=== PATIENT | female | born 1960 | race Caucasian/White ===

== ENCOUNTER 2016-10-15 06:48 | Inpatient (IN) | payer OTHER ==
--- NOTE | 2016-10-06 08:01 | HP ---
PREOPERATIVE HISTORY AND PHYSICAL EXAM: DATE OF ADMISSION: 10/15/16 CHIEF COMPLAINT: Left knee pain. HISTORY OF PRESENT ILLNESS: Ms. Pablo is a 56-year-old female with known left knee ligamentous instability and advanced arthritis. This is a valgus knee with MCL incompetence and some lateral laxity. Radiographs showed bone-on- bone contact. She has failed conservative treatment and is here today for preoperative H and P for upcoming 10/15/16 left total knee arthroplasty. PAST MEDICAL HISTORY: Depression, anxiety, arthralgias, hyperlipidemia, GERD, insomnia, postmenopausal disorder, morbid obesity, Achilles bursitis, prior lumbar spine fracture, irritable bowel syndrome. PAST SURGICAL HISTORY: Carpal tunnel release, left knee arthroscopy. CURRENT MEDICATIONS: 1. Ambien 5 to 10 mg p.o. q.h.s. for insomnia. 2. Calcium and vitamin D 500/200 one tablet p.o. b.i.d. 3. Atorvastatin 20 mg p.o. q.h.s. 4. Multivitamin 1 tablet p.o. daily. 5. Nexium 80 mg p.o. b.i.d. 6. Triamcinolone acetonide 0.1% ear drops 2 times per day as directed. 7. Tizanidine 2 to 4 mg p.o. b.i.d. 8. Extended-release morphine 15 mg p.o. b.i.d. 9. Alprazolam 0.5 mg p.o. t.i.d. ALLERGIES: No known drug allergies. No known latex allergy. FAMILY HISTORY: Heart disease. SOCIAL HISTORY: The patient lives with her children. She is disabled and does not work. No tobacco, alcohol, or recreational drug use. Ambulates with a cane or rolling walker at all times. REVIEW OF SYSTEMS: Fourteen systems are reviewed with the patient. Positive for bilateral knee pain, depression, anxiety, chronic back pain, heartburn, diarrhea, constipation. Otherwise, the patient reports review of systems is negative or not relevant. PHYSICAL EXAMINATION GENERAL: The patient is a morbidly obese female in no apparent distress. Alert and oriented x3. Pleasant mood and appropriate affect. HEENT: Atraumatic, normocephalic. Pupils equal and reactive to light. NECK: Trachea midline. No palpable lymph nodes. HEART: S1, S2. Clear to auscultation in all lung lofton. No wheezes, rubs, or rhonchi. ABDOMEN: Soft, round, nontender, nondistended. Bowel sounds in 4 quadrants. EXTREMITIES: Left lower extremity: The patient's skin is intact, 12 to 15 degrees valgus deformity that corrects by 5 degrees. There is MCL laxity and no clear endpoint LCL laxity, but I do feel an endpoint 10 to 120 degrees of active motion at the knee. Moderate effusion. No palpable mass or lymph nodes. Distally, 5/5 ankle dorsiflexion, plantar flexion strength. Full sensation to light touch in all nerve distributions and 2+ palpable DP pulse. GAIT: The patient's gait is antalgic. Slight lateral thrust to the left knee, ambulating with a cane. DIAGNOSTIC STUDIES: Radiographs: Plain film views are reviewed and show end- stage valgus arthritis of the knee with [id number] contact in the lateral compartment. An MRI from 07/11/15 shows high-grade or complete tear of the MCL and a high- grade partial tear of the LCL. ASSESSMENT AND PLAN: Ms. Pablo is a 56-year-old morbidly obese female with severe end-stage arthritis of the left knee joint. This is a valgus deformity. She also has MCL incompetence and LCL laxity. Today, the patient and I spent a long time discussing different levels of constraint in total knee arthroplasty. I do not believe she is a candidate for primary total knee arthroplasty and certainly needs at least a constrained implant. The next option would be a long-stemmed knee such as a TC3. I will have all these options from [employer] on the date of surgery on 10/15/16. If we are able to obtain stability with constrained primary implant, that would be my first choice and she understands this. I feel her ligament laxity and morbid obesity as well as her young age make early loosening of the implant possible. She reports she will accept this and proceed with surgery. Informed consent was obtained from the patient. She understands the risks of surgery include but are not limited to bleeding, infection, damage to nearby structures, continued pain, need for further surgery, intraoperative fracture, hardware failure or loosening, stroke, heart attack, blood clot, and . She wishes to proceed. She is tentatively scheduled for 10/15/16 left total knee arthroplasty. We will decide on postoperative pain control based on her postoperative needs. She will have Coumadin for a month after surgery for DVT prophylaxis. She will be n.p.o. after midnight the night before surgery, and she is headed over for preoperative testing at the hospital now. [id number]/[facility] #: [id number] MANISH
[~2016-10-15 06:48] MED LIST: Buffered Lidocaine 1% SYR 3ML* 3 ML/SYR SYRINGE INTRADERM ONE; Dexamethasone IV* 4 MG/ML 1 ML (4 MG) IV SLOW PU ONE; Famotidine IV* 10 MG/ML 2 ML (20 mg) IV ONE
[2016-10-15] MEDS ORDERED: Famotidine IV* 10 MG/ML 2 ML (20 mg) ONE (06:54)
[2016-10-15] MEDS ORDERED: Dexamethasone IV* 4 MG/ML 1 ML (4 MG) ONE (06:54)
[2016-10-15] MEDS ORDERED: ceFAZolin 2 GM PREMIX (*) 2 GM/50 ML BAG IVPB ONE (06:54)
[2016-10-15] MEDS ORDERED: fentaNYL* 50 MCG/ML 2 ML VIAL (100 MCG VIAL) ONE (07:12)
[2016-10-15] MEDS ORDERED: Dexmedetomidine* 200 MCG/2 ML 2 ML VIAL ONE (07:12)
[2016-10-15] MEDS ORDERED: HYDROmorphone INJ* 1 MG/ML CARPUJECT SYRINGE ONE ×2 (07:12→08:26)
[2016-10-15] MEDS ORDERED: Morphine PF AMP (0.5MG/ML)* 5 MG/10 ML AMP ONE (07:12)
[2016-10-15] MEDS ORDERED: Bupivacaine 0.5% SDV PF* 30 ML VIAL ONE ×2 (07:12→10:48)
[2016-10-15] MEDS ORDERED: Midazolam* 1 MG/ML 5 ML VIAL (5 MG) ONE (07:12)
[2016-10-15] MEDS ORDERED: Scopolamine 1.5 mg* PATCH ONE (07:40)
[2016-10-15] MEDS ORDERED: Ondansetron INJ* 2 MG/ML VIAL IV PRN ×3 (07:42→11:40)
[2016-10-15] MEDS ORDERED: DiMENhydriNATE IV* 50 MG/ML VIAL IV PUSH PRN (07:42)
[2016-10-15] MEDS ORDERED: PROCHLORPERAZINE INJ 5 MG/ML 2 ML VIAL IV PRN ×2 (07:42→11:40)
[2016-10-15] MEDS ORDERED: Scopolamine 1.5 mg* PATCH TRANSDERM PRN (07:42)
[2016-10-15] MEDS ORDERED: fentaNYL* 50 MCG/ML 2 ML VIAL (100 MCG VIAL) IV PRN (07:42)
[2016-10-15] MEDS ORDERED: diPHENhydraMINE IV* 50 MG/ML 1 ml VIAL (BENADRYL) IV PRN ×2 (10:28→11:40)
[2016-10-15] MEDS ORDERED: Ondansetron TAB* 4 MG PO PRN (10:28)
[2016-10-15] MEDS ORDERED: Bisacodyl SUPP* 10 MG SUPP PR PRN (10:28)
[2016-10-15] MEDS ORDERED: Polyethylene Glycol 3350* 17 GM PACKET PO PRN (10:28)
[2016-10-15] MEDS ORDERED: Propofol* 10 MG/ML 20 ML BTL IV PUSH ONE (10:48)
[2016-10-15] MEDS ORDERED: Enoxaparin(*) 30 MG/0.3 ML SYR SUBCUT SCH (11:00)
[2016-10-15] MEDS ORDERED: Nalbuphine* 20 MG/ML 1 ML VIAL IV PRN (11:40)
[2016-10-15] MEDS ORDERED: Naloxone* 0.4 MG/ML 1 ML VIAL IV PRN (11:40)
[2016-10-15] MEDS ORDERED: Morphine ORAL.SOLN 10 mg* 2 MG/ML UDC 5 ml PO PRN (11:41)
--- NOTE | 2016-10-15 13:10 | RAD ---
HISTORY: Status post left knee arthroplasty COMPARISONS: July 03, 2016 VIEWS: 4, frontal and crosstable lateral views of the left femur and foreleg FINDINGS: BONE DENSITY: Normal. BONES: The patient is status post left knee arthroplasty. There is no appreciable hardware failure or osteolysis JOINTS: The patient is status post left knee arthroplasty. ALIGNMENT: There is no dislocation. SOFT TISSUES: Unremarkable. OTHER FINDINGS: None. IMPRESSION: STATUS POST LEFT KNEE ARTHROPLASTY
--- NOTE | 2016-10-15 13:15 | RAD ---
INDICATION: Left knee replacement COMPARISONS: July 03, 2016 TECHNIQUE: Fluoroscopy was provided for a surgical procedure. Total fluoroscopy time is: 4.6 seconds FINDINGS: Spot images demonstrate left knee arthroplasty IMPRESSION: FLUOROSCOPY WAS PROVIDED FOR A SURGICAL PROCEDURE CPT II Codes: 6045F
--- NOTE | 2016-10-15 14:32 | RAD ---
Indication: Bipolar knee arthroplasty. 2 views of left knee demonstrates bipolar knee arthroplasty in satisfactory position with long femoral and tibial components. IMPRESSION: LEFT KNEE ARTHROPLASTY IN SATISFACTORY POSITION.
[2016-10-15] MEDS ORDERED: Morphine INJ* 4 MG/ML 1 ML CARPUJECT ONE (16:39)
[2016-10-15] MEDS: ceFAZolin 1 GM in Dextrose (*) 1 GM/50 ML BAG IVPB SCH (16:52)
[2016-10-15] MEDS ORDERED: Warfarin TAB(*) 6 MG PO ONE (17:00)
[2016-10-15] MEDS ORDERED: Ibuprofen TAB* 400 MG ONE (18:14)
[2016-10-15] MEDS: Morphine INJ* 4 MG/ML 1 ML CARPUJECT IV PRN ×3 (18:38→22:43)
[2016-10-15] MEDS: Docusate CAP* 100 MG PO SCH (20:41)
[2016-10-15] MEDS: Magnesium Hydroxide LIQ* 30 ML UDC PO SCH (22:46)
[2016-10-16] MEDS: Morphine TAB Extended Release (*) 30 MG TAB.ER PO SCH ×2 (00:02→12:22)
[2016-10-16] MEDS: ESOMEPRAZOLE 40 MG PO SCH ×3 (00:03→20:47)
[2016-10-16] MEDS: ALPRAZolam TAB* 0.5 MG PO PRN ×2 (00:03→14:08)
[2016-10-16] MEDS: ceFAZolin 1 GM in Dextrose (*) 1 GM/50 ML BAG IVPB SCH ×2 (00:05→08:41)
[2016-10-16] MEDS ORDERED: Zolpidem TAB* 5 MG PO PRN (00:41)
[2016-10-16] MEDS: Morphine INJ* 10 MG/ML 1 ML CARPUJECT IV PRN ×8 (00:43→16:59)
--- NOTE | 2016-10-16 01:21 | OP ---
DATE OF OPERATION: 10/15/16 - ROOM #[id number] DATE OF : 56 SURGEON: Keri Hutchinson MD CASTING REPAIRER: CHANTAL Stout ANESTHESIOLOGIST: Dr. Swartz. ANESTHESIA: Spinal. PRE-OP DIAGNOSES: Severe end-stage degenerative osteoarthritis of the left knee joint with valgus deformity, full tear of the medial collateral ligament, high-grade tear of the lateral collateral ligament. POST-OP DIAGNOSES: Severe end-stage degenerative osteoarthritis of the left knee joint with valgus deformity, full tear of the medial collateral ligament, high-grade tear of the lateral collateral ligament. OPERATIVE PROCEDURE: Left total knee arthroplasty. INDICATIONS: Ms. Pablo is a 56-year-old female with over 5 years of severe left knee pain and increasing valgus deformity. She was found to have a full MCL tear and high-grade tear of the LCL. Radiographs confirmed end-stage arthritis. The patient had difficulty ambulating and severe instability in the knee. She failed conservative treatment and elected to undergo left total knee arthroplasty. She understood the level of constraint needed and this primary knee would be higher than the normal primary total knee due to her ligamentous instability. Informed consent was obtained from the patient. She understood the risks of the procedure included but were not limited to bleeding, infection , damage to nearby structures, continued pain, need for further surgery, intraoperative fracture, stroke, heart attack, , nerve palsy, early hardware failure or loosening, periprosthetic fracture. The patient wished to proceed. COMPLICATIONS: None. ESTIMATED BLOOD LOSS: 300 cc. TOURNIQUET TIME: 71 minutes. SPECIMEN: Bone and cartilage from the left knee joint sent to Pathology. HARDWARE USED: This is [employer] cemented total knee hardware. For the femur, a sigma size 4 narrow left femoral component posterior stabilized cemented. An uncemented 75 x 16 mm stem was used for the femur. For the tibia, a MBT revision tibial tray rotating platform size 3 cemented. A 10-mm tibial insert rotating platform posterior stabilized was used, size 4. For the patella, a 3- peg All Poly oval dome patella size 32. Two packages of simplex bone cement. INTRAOPERATIVE FINDINGS: Intraoperatively, the patient had full-thickness cartilage loss in the lateral and patellofemoral compartments. She had preop 15 degrees of valgus deformity, which was corrected to 5-degree anatomic valgus alignment throughout the procedure. She had incompetent MCL. LCL had some laxity, but was competent. DESCRIPTION OF PROCEDURE: Ms. Pablo was identified in the preanesthesia unit. Her left lower extremity was marked as the correct operative side. Informed consent was signed and placed in the chart. The patient was taken to the operating room and placed under spinal anesthesia without difficulty. Omalley catheter was placed. Tourniquet was placed on the left thigh. Left lower extremity was prepped and draped in the usual sterile fashion. Preop time-out was made to correctly identify the patient's side and site. Appropriate perioperative antibiotics were given within 1 hour of incision. A 12-cm midline incision was made with a 10 blade. This was carried down to the extensor mechanism. A new 10 blade was used to make a standard medial parapatellar arthrotomy. Patella was subluxed laterally. Electrocautery was used to subperiosteally elevate soft tissue off the superomedial tibia to the mid sagittal plane. MCL was noted to incompetent. There was a small amount of posterior deep MCL still intact. The knee was flexed up. A drill was used to enter the distal femur. Intramedullary distal femoral cutting guide was placed and 9 mm of distal femur was carefully removed with an oscillating saw. Lateral femoral condylar hypoplasia was noted and accounted for. External rotation was pinned on to distal femur. Distal femur was sized to a size 4. A size 4 multi-cutting block was pinned on to distal femur. The appropriate chamfer cuts were made. PCL was completely released and the tibia was subluxed anteriorly. Extramedullary tibial cutting guide was pinned on to proximal tibia. Oscillating saw was used to make the appropriate proximal tibial cut. The bone was carefully removed. The knee was brought out in to full extension. There was some ligamentous tightness laterally. Electrocautery was used to release the capsule along the posterolateral bone and any osteophytes were carefully removed. The LCL was competent and small amount of pie-crusting was done with a 15 blade. Medial and lateral balancing was much improved. Flexion and extension gaps were well balanced. The knee was flexed up. The tibial tray and drop prieto showed satisfactory tibial cut perpendicular to the mechanical axis of the tibia. Lamina pediatric urologist was placed both medially and laterally. Any remaining meniscus was carefully removed with electrocautery. Any posterior osteophytes were removed using a curved osteotome. A size 4 narrow femoral trial was chosen and decision was made to place a stem due to the ligamentous incompetence. The intramedullary canal was sequentially broached and a size 16 stem was chosen. The trial was placed and the box for the posterior stabilized implant was made using a reciprocating saw. The implant had excellent fit and stability. A tibial tray trial with 10-mm insert was chosen. The knee was taken through range of motion and noted to have full extension to 125 degrees of flexion. The patella was everted. 9 mm of patellar bone and cartilages were removed using an oscillating saw. The patella was sized to a size 32. Three pegs were drilled to the size 32 guide. Trial patella was placed and the knee was taken through range of motion. The knee was stable in all positions. All trials were carefully removed. The tibia was subluxed anteriorly and sized to a size 3. Proximal tibia was prepared using a reamer. All bony cut surfaces were copiously irrigated with sterile saline and dried. Final implants were cemented into place starting with the tibia, followed by the femur, and lastly the patella. A 10-mm insert trial was chosen and the knee was brought out into full extension. The cement was allowed to fully cure and tourniquet was turned down at 71 minutes. Once the cement fully cured, the insert trial was removed. Posterior capsule was checked for any excess cement. Electrocautery was used to obtain meticulous hemostasis. Final insert chosen was a 10-mm tibial tray rotating platform, stabilized insert. This was locked into position on the tibial tray without difficulty. The knee was taken through range of motion and had full extension to 125 degrees of flexion. Good patellofemoral tracking. The knee was copiously irrigated with sterile saline. Extensor mechanism was closed over medium Hemovac drain using #1 Vicryl's, which were interrupted. Extra attention was given to repairing the distal medial soft tissue and a stable repair was obtained. The rest of the incision was closed in a layered fashion using 0 and 2-0 Vicryl's. Skin was closed using running 3-0 nylon suture. Sterile Xeroform, 4x4's, and Webril were used to cover the incision. The patient's incision was covered with 4x4's, Webril, Faisal wrap, and cold pack. Her anesthesia was reversed without difficulty. She was taken to the PACU in stable condition. Intended weightbearing will be weightbearing as tolerated. Intended DVT prophylaxis will be Coumadin with Lovenox bridge. [id number]/[facility] #: [id number] MTDD
[2016-10-16 06:54] LABS: Hematocrit 28 % (35-47); Hemoglobin 9.2 g/dl (12.0-16.0)
[2016-10-16 07:09] LABS: BUN/Creatinine Ratio 10.6 (8-20); Calcium 8.6 mg/dL (8.6-10.3); EGFR African American 88.3 (>60); EGFR Non-African American 68.7 (>60); Potassium 3.8 mmol/L (3.5-5.0)
[2016-10-16] MEDS: diPHENhydraMINE PO* 25 MG PO PRN ×2 (08:42→14:09)
[2016-10-16] MEDS: HYDROmorphone TAB* 4 MG PO PRN ×2 (08:43→14:08)
[2016-10-16] MEDS: Docusate CAP* 100 MG PO SCH ×2 (08:43→20:47)
[2016-10-16] MEDS: Ibuprofen TAB* 400 MG PO PRN ×3 (08:44→20:47)
[2016-10-16] MEDS ORDERED: tiZANidine TAB* 2 MG PO PRN (08:44)
[2016-10-16] MEDS: Magnesium Hydroxide LIQ* 30 ML UDC PO SCH ×2 (08:48→20:47)
[2016-10-16] MEDS ORDERED: ABILIFY PO SCH (09:00)
[2016-10-16] MEDS ORDERED: Atorvastatin* 20 MG TAB PO SCH (09:00)
[2016-10-16] MEDS ORDERED: Morphine TAB Extended Release (*) 15 MG TAB.ER PO SCH (09:00)
--- NOTE | 2016-10-16 09:02 | PN ---
Progress Note - Progress Note SOAP: Subjective: Pt. reports pain is well controlled. Objective: LLE - drain removed, tip intact, 400 cc ss drainage. distally nvi with +df/pf, full sens lt, 2+ dp pulse. Vital Signs: Temp Pulse Resp BP Pulse Ox 100.8 F 64 22 116/76 97 10/16/16 07:13 10/16/16 07:13 10/16/16 08:54 10/16/16 07:13 10/16/16 04:46 Laboratory Results - last 24 hr 10/16/16 10/16/16 10/16/16 06:19 06:19 06:19 Hgb 9.2 L Hct 28 L INR (Anticoag Therapy) 1.05 Sodium 138 Potassium 3.8 Chloride 105 Carbon Dioxide 30 Anion Gap 3 BUN 9 Creatinine 0.85 Est GFR ( Amer) 88.3 Est GFR (Non-Af Amer) 68.7 BUN/Creatinine Ratio 10.6 Glucose 109 H Calcium 8.6 Assessment: 56 yo F pod 1 s/p LTKA Plan: heel bootie to LLE wbat lle pt/ot 8 mg coumadin tonight, lovenox bridge possible d/c to home tomorrow am
[2016-10-16] MEDS: Enoxaparin(*) 30 MG/0.3 ML SYR SUBCUT SCH (11:08)
[2016-10-16] MEDS ORDERED: Warfarin TAB(*) 4 MG PO ONE (17:00)
[2016-10-16] MEDS ORDERED: Warfarin TAB(*) 6 MG PO SCH (17:00)
[2016-10-16] MEDS: Atorvastatin* 20 MG TAB PO SCH (20:46)
[2016-10-16] MEDS: Zolpidem TAB* 5 MG PO PRN (21:49)
[2016-10-16] MEDS ORDERED: ALPRAZolam TAB* 0.5 MG PO ONE (22:00)
[2016-10-17] MEDS: Morphine TAB Extended Release (*) 30 MG TAB.ER PO SCH ×3 (00:05→23:53)
[2016-10-17] MEDS: HYDROmorphone TAB* 4 MG PO PRN ×4 (03:52→23:52)
[2016-10-17] MEDS: Ibuprofen TAB* 400 MG PO PRN (03:55)
[2016-10-17 06:59] LABS: Hematocrit 27 % (35-47); Hemoglobin 8.8 g/dl (12.0-16.0)
[2016-10-17] MEDS: Morphine INJ* 10 MG/ML 1 ML CARPUJECT IV PRN (08:05)
--- NOTE | 2016-10-17 08:46 | PN ---
Progress Note - Progress Note SOAP: Subjective: POD #2 Left TKA. States she is still having quite a bit of pain, needing IV pain meds. Denies CP/SOB, calf pain. Objective: Vitals: Temp Pulse Resp BP Pulse Ox 98.1 F 74 16 103/56 100 10/17/16 03:44 10/17/16 03:44 10/17/16 08:05 10/17/16 03:44 10/17/16 03:44 Gen: A&Ox3, NAD at rest sitting in bed LLE: Incision C/D/I, moderate edema, no erythema. + ecchymosis around drain site. Thigh and calf soft, min ttp. +f/e at ankle, MTPs. N/V intact Labs: Laboratory Results - last 24 hr 10/17/16 10/17/16 06:20 06:20 Hgb 8.8 L Hct 27 L INR (Anticoag Therapy) 1.60 H Assessment: POD #2 Left TKA Plan: Encouraged pt to use oral pain meds only, IV meds only when in severe pain INR 1.6 after 8mg Coumadin. Will give 6mg tonight Cont PT/OT Possible d/c tomorrow
[2016-10-17] MEDS: Docusate CAP* 100 MG PO SCH ×2 (08:54→20:06)
[2016-10-17] MEDS: ESOMEPRAZOLE 40 MG PO SCH ×2 (08:54→20:06)
[2016-10-17] MEDS: diPHENhydraMINE PO* 25 MG PO PRN ×2 (08:54→23:53)
[2016-10-17] MEDS: Magnesium Hydroxide LIQ* 30 ML UDC PO SCH ×2 (08:55→20:08)
[2016-10-17] MEDS ORDERED: Pneumococcal *Vac Polyvalent 0.5 ML VIAL IM ONE (09:00)
[2016-10-17] MEDS: ALPRAZolam TAB* 0.5 MG PO PRN (10:29)
[2016-10-17] MEDS: Acetaminophen TAB* 325 MG PO PRN ×2 (10:29→20:06)
[2016-10-17] MEDS: Enoxaparin(*) 30 MG/0.3 ML SYR SUBCUT SCH (10:30)
[2016-10-17] MEDS ORDERED: Warfarin TAB(*) 6 MG PO SCH (17:00)
[2016-10-17] MEDS: Atorvastatin* 20 MG TAB PO SCH (20:06)
[2016-10-17] MEDS: Zolpidem TAB* 5 MG PO PRN (23:52)
[2016-10-18] MEDS: Acetaminophen TAB* 325 MG PO PRN (06:19)
[2016-10-18] MEDS: HYDROmorphone TAB* 4 MG PO PRN ×2 (06:20→12:34)
[2016-10-18] MEDS ORDERED: Scopolamine PATCH Remove* 1 NOTE MISC PATCH OFF ONE (07:43)
[2016-10-18 08:03] LABS: Hematocrit 25 % (35-47); Hemoglobin 8.2 g/dl (12.0-16.0)
--- NOTE | 2016-10-18 08:34 | PN ---
Progress Note - Progress Note SOAP: Subjective: POD #3 left TKA, doing well. Has not required IV pain medication since yesterday morning. Ambulating with minimal assistance and walker. Denies dizziness, CP/SOB or calf pain. Objective: Vitals: Temp Pulse Resp BP Pulse Ox 98.5 F 87 16 122/46 93 10/18/ 07:11 10/18/16 07:11 10/18/16 07:49 10/18/16 07:11 10/18/16 07:11 Gen: A&Ox3, NAD ambulating to bathroom with walker. LLE: Dressing C/D/I, +f/e at ankle and MTPs, N/V intact Labs: Laboratory Results - last 24 hr 10/18/17 10/18/16 07:43 07:43 Hgb 8.2 L Hct 25 L INR (Anticoag Therapy) 2.92 H Assessment: POD #3 left TKA Plan: D/C home today with current pain medications VNS and home PT to see Hold Coumadin 10/18/16, 10/19/16 as INR 2.92
[2016-10-18] MEDS: Docusate CAP* 100 MG PO SCH (09:37)
[2016-10-18] MEDS: ESOMEPRAZOLE 40 MG PO SCH (09:37)
[2016-10-18] MEDS: diPHENhydraMINE PO* 25 MG PO PRN (09:39)
[2016-10-18] MEDS: Magnesium Hydroxide LIQ* 30 ML UDC PO SCH (09:40)
--- NOTE | 2016-10-18 11:40 | DS ---
DISCHARGE SUMMARY: DATE OF ADMISSION: 10/15/16 DATE OF DISCHARGE: 10/18/16 PROVIDER: Keri Hutchinson MD ADMISSION DIAGNOSIS: Severe end-stage osteoarthritis of the left knee. DISCHARGE DIAGNOSIS: Severe end-stage osteoarthritis of the left knee, status post left total knee arthroplasty. SECONDARY DIAGNOSES: 1. Depression. 2. Anxiety. 3. Hyperlipidemia. 4. Gastroesophageal reflux disease. 5. Insomnia and irritable bowel syndrome. HISTORY OF PRESENT ILLNESS: Ms. Pablo is a 56-year-old female who had advanced end-stage osteoarthritis of the left knee. She had failed conservative treatment and elected to proceed with a left total knee arthroplasty. HOSPITAL COURSE: On 10/15/16, the patient was admitted to [facility] and underwent a successful left total knee arthroplasty by Dr. Hutchinson. She recovered briefly in the post-anesthesia care unit. She was then transferred to the Short-Stay Surgical Unit in stable condition. She was receiving IV and oral pain medication. On postop day #1, the patient was able to ambulate a short distance with the use of a rolling walker. She continued to need IV and oral pain medication. She had acute blood loss anemia with an H and H of 9.2 and 28. INR was 1.05 with 8 mg of Coumadin the night previously. Her Omalley catheter was removed that day. Her Hemovac was also removed without complication. On postop day #2, the patient still continued to require some IV and oral pain medication; however, she was able to ambulate a longer distance with physical therapy and the use of a rolling walker. She continued to have acute blood loss anemia. H and H is 8.8 and 27. INR 1.6 with an additional 8 mg of Coumadin. On postop day #3, the patient not required IV pain medication for greater than 24 hours. She was ambulating with minimal assistance with the rolling walker without significant pain. H and H was 8.2 and 25. INR 2.9 with a 6 mg of Coumadin the night previously. Throughout the patient's hospital course, she remained normotensive and afebrile. She denies any dizziness, lightheadedness, shortness of breath, or chest pain. She was found stable for discharge on postop day #3. DISCHARGE MEDICATIONS: The patient will go home with a prescription for: 1. Hydromorphone 4 mg p.o. q.6 hours p.r.n. pain. 2. She has a prescription also for Percocet 5/325 mg p.o. q.4-6 hours p.r.n. pain. 3. She is understanding to take either the Percocet or the hydromorphone; however, she is not to take both at the same time. 4. Colace 100 mg p.o. b.i.d. p.r.n. and constipation. 5. Coumadin 2 mg by mouth daily or as directed by the visiting nurse. She is advised to hold her Coumadin on 10/18/16 and 10/19/16 as her INR was supratherapeutic. The patient will resume her home medications of: 1. Morphine sulfate ER 15 mg p.o. b.i.d. 2. Nexium 4 mg p.o. every day. 3. Diclofenac gel 1% apply topically t.i.d. p.r.n. pain. 4. Calcium carbonate/cholecalciferol 1 tab p.o. daily. 5. Lipitor 20 mg p.o. daily. 6. Abilify 1 tab p.o. daily. 7. Alprazolam 0.5 mg p.o. t.i.d. p.r.n. anxiety. 8. Ambien 10 mg p.o. at bedtime. 9. Tizanidine 2 to 4 mg p.o. b.i.d. 10. Multivitamin 1 p.o. every day. 11. Celebrex 200 mg 1 tab p.o. every day. DISCHARGE INSTRUCTIONS: The patient is to keep her incision clean and dry until postop day #4. She may shower normally at that time and wash normally. She may apply dry dressing as needed. She is understanding not to submerge the incision in the bathtub, hot tub, or swimming pool. She will be weightbearing as tolerated with the use of a rolling walker. She will have visiting nurse service and home physical therapy for INR draws and home exercise plan. The patient understanding to call Dr. Hutchinson's office with any questions or concerns. She is to go directly to the emergency room with any chest pain, shortness of breath, fever greater than 101.5, or calf pain or swelling. The patient will otherwise follow up with Dr. Hutchinson in 10 to 14 days postoperatively. All the patient's questions were answered to her full satisfaction. CHANTAL MORALES [id number]/[facility] #: [id number] MTDD
[2016-10-18 12:08] VITALS: BP 113/53
[2016-10-18] MEDS: Morphine TAB Extended Release (*) 30 MG TAB.ER PO SCH (12:34)
[2016-10-18] MEDS: Enoxaparin(*) 30 MG/0.3 ML SYR SUBCUT SCH (12:51)
== END 2016-10-18 14:30 | disposition home or self-care (01) | DRG 302 ==
LOC: AA 06:48 → SSU 13:22
PROVIDERS: ADMIT Orthopaedic Surgery Adult Reconstructive Orthopaedic Surgery; ATTEND Orthopaedic Surgery Adult Reconstructive Orthopaedic Surgery
PROC: 0SRD0J9 Replacement of Left Knee Joint with Synthetic Substitute, Cemented, Open Approach (ICD-10-PCS; principal; 2016-10-15 08:30)
DX: M17.12 Unilateral primary osteoarthritis, left knee (principal); F32.9 Major depressive disorder, single episode, unspecified; S83.412A Sprain of medial collateral ligament of left knee, initial encounter; S83.422A Sprain of lateral collateral ligament of left knee, initial encounter; E78.5 Hyperlipidemia, unspecified; F41.9 Anxiety disorder, unspecified; K21.9 Gastro-esophageal reflux disease without esophagitis; G47.00 Insomnia, unspecified; N95.9 Unspecified menopausal and perimenopausal disorder; K58.9 Irritable bowel syndrome, unspecified; M76.60 Achilles tendinitis, unspecified leg; E66.9 Obesity, unspecified; X58.XXXA Exposure to other specified factors, initial encounter; Y92.9 Unspecified place or not applicable; Z68.35 Body mass index [BMI] 35.0-35.9, adult; Z79.891 Long term (current) use of opiate analgesic; Z79.899 Other long term (current) drug therapy; Z82.49 Family history of ischemic heart disease and other diseases of the circulatory system
CPT/HCPCS: 36415; 76000; 80048; 85014; 85018; 85610; 88305; 88311; 90732; 94760; A9270-GY; C1776; J0690; J1100; J1170; J1650; J2250; J2270; J2405; J2704; J3010

== ENCOUNTER 2016-11-05 13:08 | Emergency (ER) | payer OTHER ==
[2016-11-05 14:04] VITALS: BP 109/69
--- NOTE | 2016-11-05 15:42 | ED ---
Lower Extremity - HPI Summary HPI Summary: 56 female presents with complaints of not having pain medication after her knee replacement approximately 1 month ago. Patient states she has been out of her pain medication for the past 7 days and has been in excruciating pain. She was seen by pain management where she was told her medication would be refilled however it was not at the pharmacy. She tried calling Dr Laughlin and Dr Hutchinson's office (orthopedic surgeon) for clarification and pain medication refill but she was told they were too busy. She has been nauseous, crying and unable to participate in her physical therapy because of the pain. 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 Patient states she thinks it may be her insurance that is causing the issue. She brought her empty prescription bottles in with her. States the pain is constant without any relief. Unable to pertain in her every day activities. - History of Current Complaint Chief Complaint: EDGeneral Stated Complaint: NEEDS PAIN MED Time Seen by Provider: 11/05/16 15:02 Hx Obtained From: Patient Onset of Pain: Days Onset/Duration: Worse Since Severity Initially: Moderate Severity Currently: Severe Pain Intensity: 10 Pain Scale Used: 0-10 Numeric Timing: Constant Location: Is Diffuse - left knee, post knee replacement Character Of Pain: Aching Associated Signs And Symptoms: Positive: Swelling, Knee Pain Aggravating Factor(s): Standing, Ambulation, Movement, Weight Bearing Alleviating Factor(s): Nothing Able to Bear Weight: Yes - with pain - Allergies/Home Medications Allergies/Adverse Reactions: Allergies Allergy/AdvReac Type Severity Reaction Status Date / Time GLUTEN Allergy GI Uncoded 10/15/16 07:18 PMH/Surg Hx/FS Hx/Imm Hx Endocrine/Hematology History: Denies: Hx Diabetes Cardiovascular History: Denies: Hx Hypertension, Hx Pacemaker/ICD Respiratory History: Reports: Hx Asthma - HX OF GI History: Reports: Hx Gastroesophageal Reflux Disease - NEXIUM FOR, Hx Irritable Bowel History: Denies: Hx Renal Disease Musculoskeletal History: Reports: Hx Arthritis - BOTH KNEES Sensory History: Reports: Hx Contacts or Glasses - GLASSES Denies: Hx Hearing Aid Opthamlomology History: Reports: Hx Contacts or Glasses - GLASSES Psychiatric History: Reports: Hx Anxiety - ON MEDICATION FOR, Hx Depression - ON MEDICATION FOR Denies: Hx Panic Disorder - Surgical History Surgery Procedure, Year, and Place: Lt KNEE ARTHROSCOPIC - 2 Hx Anesthesia Reactions: Yes - NAUSEA Infectious Disease History: No Infectious Disease History: Denies: Traveled Outside the [place] in Last 30 Days - Family History Known Family History: Positive: Cardiac Disease - Social History Alcohol Use: None Substance Use Type: Reports: None, Other Substance Use Comment - Amount & Last Used: prescription pain meds Smoking Status (MU): Former Smoker Amount Used/How Often: 1/2 PPD X 20 YEARS Review of Systems Constitutional: Negative Eyes: Negative ENT: Negative Cardiovascular: Negative Respiratory: Negative Positive: Nausea Positive: Arthralgia, Myalgia, Edema - left knee Skin: Negative Neurological: Negative Positive: Anxious All Other Systems Reviewed And Are Negative: Yes Physical Exam Triage Information Reviewed: Yes Vital Signs On Initial Exam: Initial Vitals Temp Pulse Resp BP Pulse Ox 97.6 F 94 20 110/95 100 11/05/16 13:09 11/05/16 13:09 11/05/16 13:09 11/05/16 13:09 11/05/16 13:09 Vital Signs Reviewed: Yes Appearance: Positive: Well-Appearing, Well-Nourished, Pain Distress - tearful during exam frustrated and upset Skin: Positive: Warm, Skin Color Reflects Adequate Perfusion, Dry Head/Face: Positive: Normal Head/Face Inspection Eyes: Positive: Normal ENT: Positive: Normal ENT inspection, Hearing grossly normal Neck: Positive: Supple, Nontender Respiratory/Lung Sounds: Positive: Clear to Auscultation, Breath Sounds Present Cardiovascular: Positive: Normal, RRR, Pulses are Symmetrical in both Upper and Lower Extremities - 2+ pedal b/l Abdomen Description: Positive: Nontender, No Organomegaly Bowel Sounds: Positive: Present Musculoskeletal: Positive: Normal, Limited @ - left knee due to pain, passive ROM causes pain as well with both flexion and extension, no obvious signs of deformity, mild edema noted. no ecchymosis or hematoma. No signs of infection. Midline scar noted from recent surgical replacement, Pain @ - left knee. Negative: Interruption @ Neurological: Positive: Normal, Sensory/Motor Intact, Alert, Oriented to Person Place, Time, Reflexes Intact - not assessed on left knee, right knee 2+, Abnormal Gait - limping due to pain, able to bear weight Psychiatric: Positive: Anxious - crying during exam Diagnostics - Vital Signs Vital Signs Temp Pulse Resp BP Pulse Ox 11/05/16 14:04 98.6 F 72 20 109/69 98 11/05/16 13:09 97.6 F 94 20 110/95 100 - Laboratory Lab Statement: Any lab studies that have been ordered have been reviewed, and results considered in the medical decision making process. Lower Extremity Course/Dx - Course Course Of Treatment: Reference #: [id number] I stop. Spoke with Dr Laughlin office who stated they did try to fill her prescriptions however was having problems with insurance coverage. Was told to fill her a 7 day supply here until her next appointment and so insurance could be figured out in the meantime for the morphine. Scripts will be refilled for 7 days supply. Spoke with pharmacy unable to fill the morphine due to insurance purpose. Patient aware and will have to work with primary doc to figure out issue. She is aware of the risks of narcotic management and signs and symptoms to watch out for. Also educated on addiction. No new physical exam findings requiring further evaluation at this time. - Diagnoses Differential Diagnosis/HQI/PQRI: Positive: Other Provider Diagnoses: Difficulty refilling prescriptions, Prescription refill - Physician Notifications Discussed Care of Patient With: Dr Scherer and Dr Laughlin (pain management) Discharge - Discharge Plan Condition: Stable Disposition: HOME Prescriptions: HYDROmorphone TAB* [Dilaudid TAB*] 4 mg PO Q6H PRN #28 tab MDD 4 PRN Reason: Pain Morphine Sulfate Beads [Morphine Sulfate ER] 30 mg PO BID #14 cap MDD 2 Patient Education Materials: Narcotic Pain Management (ED) Referrals: Natalie Deluna MD [Primary Care Provider] - Additional Instructions: Take medication as prescribed. Do not drive while taking this medication. Make an appointment with the lead painter for further treatment.
== END 2016-11-05 16:13 | disposition home or self-care (01) ==
LOC: ED 13:08
DX: Z76.0 Encounter for issue of repeat prescription (principal); M25.562 Pain in left knee; Z87.891 Personal history of nicotine dependence; R11.0 Nausea; Z96.652 Presence of left artificial knee joint
CPT/HCPCS: 99282